=== PATIENT | female | born 1955 | race Hispanic/Latino ===

== ENCOUNTER 2017-05-14 09:15 | Day surgery (SDC) | payer OTHER ==
[~2017-05-14] VITALS: Ht 157.5 cm; Wt 118.8 kg
[~2017-05-14 09:15] MED LIST: ALLERGY RELIEF180 MG PO; APRESOLINE100 MG PO; ATORVASTATIN CA80 MG PO; BUMETANIDE2 MG PO; CALCITRIOL0.5 MCG PO; CALCIUM600 M1 PO; CYCLOBENZAPRINE5 MG PO; ERGOCALCIF50000 UNIT PO; LANTUS 3 M100 UNITS1 SC; LO-DOSE ASPIRIN81 M2 PO; LYRICA75 MG PO; MICRO-K10 ME2 PO; NOVOLOG PE100 UNITS/ SC; OMEPRAZOLE40 M1 PO; OXYCODONE-ACET1 EACH PO; PROZAC40 MG PO; RESTASIS MULTI5.5 ML BOTH EYES; TOPROL XL200 MG PO; TRADJENTA5 MG PO; ULTRAM50 MG PO; VITAMIN B-6100 MG PO
[2017-05-14 09:46] VITALS: BP 132/63
[2017-05-14 12:50] VITALS: BP 133/63
[2017-05-14 13:50] VITALS: BP 146/80
== END 2017-05-14 13:54 | disposition home or self-care (01) ==
LOC: SDC 09:15
PROVIDERS: Internal Medicine
DX: H43.12 Vitreous hemorrhage, left eye (principal); E11.3592 Type 2 diabetes mellitus with proliferative diabetic retinopathy without macular edema, left eye; E78.5 Hyperlipidemia, unspecified; I12.9 Hypertensive chronic kidney disease with stage 1 through stage 4 chronic kidney disease, or unspecified chronic kidney disease; E11.22 Type 2 diabetes mellitus with diabetic chronic kidney disease; N18.9 Chronic kidney disease, unspecified; E66.9 Obesity, unspecified; Z68.42 Body mass index [BMI] 45.0-49.9, adult; D64.9 Anemia, unspecified; Z79.82 Long term (current) use of aspirin
CPT/HCPCS: 82948; J0690; J3010